=== PATIENT | female | born 1985 ===

== ENCOUNTER 2018-04-14 11:01 | Emergency (ER) | payer OTHER ==
[2018-04-14] MEDS ORDERED: Sodium Chloride 0.9% 1,000 ML IV STA (12:41)
[2018-04-14] MEDS ORDERED: Magnesium Sulfate 1 gm in D5W 1 GM/100 ML BAG IVPB STA (12:41)
[2018-04-14] MEDS ORDERED: Dexamethasone 4 mg/1 ml IVP STA (12:41)
--- NOTE | 2018-04-14 12:41 | C.PDOC ---
History Of Present Illness 32 y/o female presents to ED with c/o headache for 3 days associated with nausea. Patient states she regularly gets headaches that lasts 3-4 days which resolve with Aleve or Advil. Patient reports headache worse today prompting visit and states she took Advil 8:30am today. Patient denies trauma, vision changes, vomiting, numbness, weakness or any other complaints at this time. Time Seen by Provider: 04/14/18 12:21 Chief Complaint (Nursing): Headache History Per: Patient History/Exam Limitations: no limitations Onset/Duration Of Symptoms: Days Current Symptoms Are (Timing): Still Present Quality: "Pain" Past Medical History Reviewed: Historical Data, Nursing Documentation, Vital Signs Vital Signs: Last Vital Signs Temp 98.3 F 04/14/18 11:08 Pulse 65 04/14/18 11:08 Resp 16 04/14/18 11:08 BP 131/82 04/14/18 11:08 Pulse Ox 100 04/14/18 11:08 - Medical History PMH: No Chronic Diseases Surgical History: No Surg Hx Family History: States: No Known Family Hx - Social History Hx Tobacco Use: No Hx Alcohol Use: No Hx Substance Use: No - Immunization History Hx Tetanus Toxoid Vaccination: No Hx Influenza Vaccination: No Hx Pneumococcal Vaccination: No Review Of Systems Gastrointestinal: Positive for: Nausea. Negative for: Vomiting, Abdominal Pain, Diarrhea Skin: Negative for: Rash Neurological: Positive for: Headache. Negative for: Weakness, Numbness Physical Exam - Physical Exam Appears: Non-toxic, Other (In mild distress) Skin: Warm, Dry, No Rash Head: Atraumatic, Normacephalic Eye(s): bilateral: Normal Inspection Oral Mucosa: Moist Neck: Normal ROM, Supple Cardiovascular: Rhythm Regular Respiratory: Normal Breath Sounds, No Rales, No Rhonchi, No Wheezing Gastrointestinal/Abdominal: Soft, No Tenderness, No Guarding, No Rebound Extremity: Normal ROM, Capillary Refill (<2 seconds) Neurological/Psych: Oriented x3, Normal Speech, Normal Cognition ED Course And Treatment O2 Sat by Pulse Oximetry: 100 (RA) Pulse Ox Interpretation: Normal Reevaluation Time: 14:07 Reassessment Condition: Improved Disposition Counseled Patient/Family Regarding: Diagnosis, Need For Followup - Disposition Referrals: [facility] [Outside] [facility] [Outside] Disposition: HOME/ ROUTINE Disposition Time: 14:08 Condition: IMPROVED Instructions: Migraine Headache (DC) Forms: [facility] ([place]), Work Excuse Print Language: SWEDISH - Clinical Impression Clinical Impression: Migraine - Scribe Statement The provider has reviewed the documentation as recorded by the Robinsonibadrianna Hutchison All medical record entries made by the Robinsonibadrianna were at my direction and personally dictated by me. I have reviewed the chart and agree that the record accurately reflects my personal performance of the history, physical exam, medical decision making, and the department course for this patient. I have also personally directed, reviewed, and agree with the discharge instructions and disposition.
[2018-04-14] MEDS ORDERED: Dexamethasone 4 mg/1 ml ONE (13:17)
[2018-04-14] MEDS ORDERED: Magnesium Sulfate 1 gm in D5W 1 GM/100 ML BAG IVPB ONE (13:17)
[2018-04-14] MEDS ORDERED: Sodium Chloride 0.9% 1,000 ML ONE (13:18)
[2018-04-14 13:45] VITALS: RESP 18
[2018-04-14 14:41] VITALS: BP 117/73; PULSE 74; TEMP 98.6; O2SAT 99
== END 2018-04-14 14:41 | disposition home or self-care (01) ==
LOC: C.ER 11:01
DX: G43.909 Migraine, unspecified, not intractable, without status migrainosus (principal)
CPT/HCPCS: 96365; 96375; 99285; J1100; J1885; J2765; J3475; J7030

== ENCOUNTER 2018-11-24 09:25 | Outpatient (CLI) | payer SELFPAY | END 2018-11-24 09:26 | disposition home or self-care (01) | LOC: C.LAB 09:25 | DX: Z01.419 Encounter for gynecological examination (general) (routine) without abnormal findings (principal) ==

== ENCOUNTER 2018-11-27 13:32 | Outpatient (CLI) | payer SELFPAY | END 2018-11-27 13:33 | disposition home or self-care (01) | LOC: C.MAMMO 13:32 ==